=== PATIENT | male | born 1995 | race Hispanic/Latino ===

== ENCOUNTER 2019-09-18 11:12 | Inpatient (IN) | payer OTHER ==
[~2019-09-18] VITALS: Ht 190.5 cm; Wt 68.0 kg
--- NOTE | 2019-09-18 16:06 | NUR ---
09/18/19 1606 Zohaib Maldonado PATIENT ARRIVES TO PACU AWAKE, BUT DROWSY. BREATHING ON HIS OWN.
--- NOTE | 2019-09-18 16:25 | NUR ---
Patient arrives to unit via hospital bed from PACU. Patient is alert. Vitals taken, assessment complete. Abdominal dressings are C/D/I. Bowel tones are hypoactive on RLQ/RUQ and active on LLQ/LUQ. Patient denies pain or nausea. Ice pack applied to abdomen. Patient sips several small sips of water. Clear liquid tray ordered. Patient encouraged to use IS, demonstrates competency. Denies further needs at this time. Call light within reach.
--- NOTE | 2019-09-18 17:44 | NUR ---
Patient sitting up in bed with family in room. Dinner delivered, patient denies pain or nausea. Bowel tones active with tenderness noted on palpation on the RLQ. SCDs in place, D5LR running at 150 mls/hr. No further needs at this time, call light within reach.
--- NOTE | 2019-09-18 17:52 | NUR ---
Patient reports pain of 2/10, pain medication provided.
--- NOTE | 2019-09-18 18:30 | NUR ---
Patient sitting up in bed with family in room. Assessment complete, abdominal dressings C/D/I. Active bowel tone, tenderness noted on palpation. Vital signs taken. No gas passed. Continues working with IS. No further needs at this time, call light within reach.
--- NOTE | 2019-09-18 18:45 | NUR ---
Patient ambulated hallways with family and nursing staff. Denies pain or nausea. Returned to room, ambulated to toilet. Voiding QS. Denies further needs at this time, call light within reach.
--- NOTE | 2019-09-18 19:33 | NUR ---
hob elevated, visiting with friend via phone, no c/o pain. ivf infusing, family at bedside
--- NOTE | 2019-09-18 20:14 | NUR ---
c/o 05/31 abd pain. medicated with toradol
--- NOTE | 2019-09-18 20:36 | NUR ---
CHARGE NURSE ROUNDING. pt RESTING IN BED. NO REQUESTS AT THIS TIME. IV PUMPS PLUGGED IN. WHITEBOARD UP TO DATE. CALL LIGHT WITHIN REACH.
--- NOTE | 2019-09-18 23:15 | NUR ---
RESTING, EYES CLOSED, SMALL AMOUNT OF SS DRAINAGE ON LOWER DRESSING. NO FURTHER C/O ABD PAIN, IVF INFUSING, NO FURTHER C/O ADVERSE REACTION TO ABX
--- NOTE | 2019-09-19 00:07 | NUR ---
PER REQUEST OF RN I CHECKED PT'S TEMP. 98.0 AXILLARY
--- NOTE | 2019-09-19 00:16 | NUR ---
pt REPORTING "FEVER AND PAIN" CUSTOMER ENGAGEMENT REPRESENTATIVE IN TO TAKE TEMP WNL, pt DID REPORT CHILLS. GAVE PRN MED. EDUCATED ON MED. PRIMARY RN INFORMED. CALL LIGHT WITHIN REACH.
--- NOTE | 2019-09-19 01:41 | NUR ---
VITALS AND I&OS DONE AND CHARTED. FRESH ICE WATER AND AN ICE PACK GIVEN. BEDSIDE TABLE AND CALL LIGHT IN REACH.
--- NOTE | 2019-09-19 01:54 | NUR ---
pt ambulating hallways, states burping and maybe passing very small a couple rectal gas. IVf infusing, no adverse reaction to abx. No n/v, no c/o pain, pain med given earlier effective. Up to br, voiding large amounts of yellow urine.Back to bed
--- NOTE | 2019-09-19 01:55 | NUR ---
HELPED PT TO GET HIS SCD'S BACK ON AFTER HIS WALK. BEDSIDE TABLE AND CALL LIGHT IN REACH.
--- NOTE | 2019-09-19 03:48 | NUR ---
resting,resp even unlabored. ivf infusing, scds in place, family inroom
--- NOTE | 2019-09-19 05:38 | NUR ---
PT 3 ABD LAP INCISION INTACT. LOW AABD AREA SLIGHTLY DISTENDED, GLEN BOWEL TONES, BURPING, STATED PASSING GAS RECTALLY X1. HAS BEEN MEDICATED WITH NORCO AND TORADOL WITH GOOD PAIN RELIEF.ICE TO ABD. TOLERATED. NO N/V. TOLERATING CLEAR LIQUIDS WELL. IVF INFUSING, NO C/O ADVERSE REACTION TO IV ABX. VOIDING LARGE AMOUNTS OF YELLOW URINE. WALKED HALLWAYS SEVERAL TIMES. TOLERATED WELL. WRITTEN INFORMATION R/T APPENDECTOMY GIVEN. NO QUESTIONS ASKED, FAMILY AT BEDSIDE
--- NOTE | 2019-09-19 06:50 | NUR ---
awakes easily, denies c/o pain, on clears diet. abd dressinf intact lower end with old drainage. scds inplace, stated passing gas x1 earlier
--- NOTE | 2019-09-19 07:00 | NUR ---
Report received, orders acknowledged. Patient sitting up in bed, awake and alert. Family in room. Patient denies pain or nausea. POC discussed. No further needs at this time. Call light within reach.
--- NOTE | 2019-09-19 07:15 | NUR ---
Patient ambulating hallways with family
--- NOTE | 2019-09-19 07:53 | OR ---
[facility] [address], [place] [address] Signed DATE OF OPERATION: 09/18/2019 SURGEON: Ben Taylor MD PREOPERATIVE DIAGNOSIS: Perforated appendicitis with small abscess. POSTOPERATIVE DIAGNOSIS: Perforated appendicitis with small abscess. PROCEDURE PERFORMED: Laparoscopic appendectomy. ESTIMATED BLOOD LOSS: None. FINDINGS: Kevin is very tall at 6 feet 3 inches. His cecum is actually all the way to the bottom of his pelvis. The tip of his appendix was midway up the right gutter and perforated with a small abscess covered by some omentum. 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 In the last two days, he has been having increasing right lower quadrant abdominal pain with nausea. He came to the emergency room for evaluation. He was tachycardic in the ER and had tenderness in the right lower quadrant if not localized peritonitis. White count was 12,[address] scan confirmed his thickened inflamed appendix with some gas bubbles and a small abscess associated with the appendix. I was asked to see him as a general surgeon on-call in the emergency room. In the meantime, he received some pain medication along with cefepime and Flagyl. I met with Kevin and his and we had a long discussion regarding the location and function of the appendix with respect to the above findings. We discussed laparoscopic versus open appendectomy. He understands the expected intra and postoperative course. We did review the risks including, but not limited to bleeding, infection, scarring, change in contour of the skin, damage to bowel, appendiceal stump leak, postoperative intraabdominal abscess, incisional hernias and other unforeseen comorbidities. He and his had expressed understanding and wished to proceed. PROCEDURE NOTE: Kevin was taken into our operating room and placed in the supine position under Electronically Signed By: BEN TAYLOR MD 09/19/19 0753 PATIENT NAME: KEVIN TIDWELL OPERATIVE REPORT DATE OF : [birth year] REPORT #: [id number] PHYSICIAN: BEN TAYLOR MD PCP: NO PRIMARY CARE PHYSICIAN REPORT IS CONFIDENTIAL AND NOT TO BE RELEASED WITHOUT AUTHORIZATION [facility] [address] [place], [place] [address] Signed general endotracheal tube anesthesia. He was given his preoperative antibiotics along with subcutaneous heparin. SCDs were utilized. A Arias catheter was inserted with return of clear yellow urine without difficulty. He was then prepped and draped in the usual sterile fashion. All trocars were placed in usual positions under direct visualization of the camera. Once again, we found that the cecum was all the way in the bottom of the pelvis and the tip of the appendix was midway up the right gutter. Consequently, we elevated the appendix as it joined the cecum. We created a window with our cautery and divided the appendix from the cecum with the help of a linear stapler. We then worked the omentum bluntly off the appendix and we evacuated the small abscess and irrigated it out until clear. We were able to elevate the appendix up and we divided the mesoappendix with two loads on the linear stapler. All hemostasis was excellent on both staple lines. After this, the appendix was placed into an EndoCatch bag and taken out through the right subcostal trocar site. We used our laparoscopic suturing device to pass 0 Vicryl suture on either side of the fascia of this right subcostal trocar site. This was tied down to close this fascia primarily. We then closed the fascia of the supraumbilical trocar site with interrupted jilhyz-aw-qugla and simple 0 Vicryl sutures. The wound was irrigated and suctioned out until clear. Local anesthetic was copiously injected into all three trocar sites. The skin and dermis of each trocar site were closed with interrupted 3-0 subcuticular Monocryl sutures. Dry gauze and tape were then applied to all incisions. Kevin was awakened from his anesthesia, extubated in the OR, and taken to recovery room in stable condition. Ben Taylor MD ALB/MODL /[id number] cc: Ben Taylor MD Patient's Chart Copies: BEN TAYLOR MD ~ Electronically Signed By: BEN TAYLOR MD 09/19/19 0753 PATIENT NAME: KEVIN TIDWELL OPERATIVE REPORT DATE OF : [birth year] REPORT #: [id number] PHYSICIAN: BEN TAYLOR MD PCP: NO PRIMARY CARE PHYSICIAN REPORT IS CONFIDENTIAL AND NOT TO BE RELEASED WITHOUT AUTHORIZATION
--- NOTE | 2019-09-19 07:53 | CONS ---
[facility] [address] [place], [place] [address] Signed DATE OF CONSULTATION: 09/18/2019 CHIEF COMPLAINT: Right lower quadrant abdominal pain. 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 He is now and living in [place], [place] with his . In the last couple of days, he has been having increasing right lower quadrant abdominal pain with nausea. He finally came to emergency room for evaluation. Here in emergency room, he is little tachycardic. He is also very anxious. He does not appear systemically ill or toxic, but he is certainly tender in the right lower quadrant. White count was 12,000, and a CT scan showed his thickened appendix with few air bubbles around it. Consequently, I was asked to see him as a general surgeon on-call. The meantime, he is receiving his cefepime and Flagyl along with some pain medication. PAST MEDICAL HISTORY: None. PAST SURGICAL HISTORY: None. SOCIAL HISTORY: He does not smoke. He has a drink once in a while. He is , but has no children. They live in [place], [place]. They prefer the [facility] up in [place], [place]. They have no children. 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 They have no primary care provider. FAMILY HISTORY: Apparently, his dad had some type of stomach surgery sounds like it was a stapling procedure. REVIEW OF SYSTEMS: He had 10 systems reviewed. He seems to be quite healthy. ALLERGIES: None. MEDICATIONS: None. PHYSICAL EXAMINATION: VITAL SIGNS: His blood pressure is 130/79, his heart rate is 117, his respiratory rate Electronically Signed By: ROSENDO TAYLOR MD 09/19/19 0753 PATIENT NAME: KEVIN TIDWELL CONSULTATION DATE OF : [birth year] REPORT #: [id number] PHYSICIAN: ROSENDO TAYLOR MD PCP: NO PRIMARY CARE PHYSICIAN REPORT IS CONFIDENTIAL AND NOT TO BE RELEASED WITHOUT AUTHORIZATION [facility] [address] [place], [place] [address] Signed is 16, temperature is 98.9. He is 100% on room air. He is 6 feet 3 inches, 68 kg exam. GENERAL: Kevin is a 24-year-old gentleman lying supine in his emergency room bed. His is in the room along with our nurse. He does not appear systemically ill or toxic, but he is obviously very anxious. LUNGS: Clear to auscultation bilaterally. HEART: Regular rate and rhythm. ABDOMEN: Soft, flat, but he is tender in the right lower quadrant. LABORATORY DATA: His white blood count 12. His hemoglobin 14 , neutrophils 71. Electrolytes are unremarkable. His urinalysis was negative. Liver function tests were negative, albumin is 4.5, his lipase is 15. RADIOGRAPHIC STUDIES: CT scan of the abdomen and pelvis was performed and reviewed. I can see that he certainly has a thickened inflamed appendix with some air bubbles around it. ASSESSMENT/PLAN: Kevin is a 24-year-old gentleman who presents with appendicitis with perforation and few air bubbles around it. I have reviewed all these findings with Kevin and his . We have reviewed the location and function of the appendix. We have reviewed laparoscopic versus open appendectomy. We have reviewed the expected intraop and postop course. We went through the risks including, but not limited to bleeding, infection, scarring, change in contour of the skin, damage to bowel, appendiceal stump leak, postoperative intraabdominal abscess, incisional hernias, and other unforeseen comorbidities. He has expressed understanding and would like to proceed with surgery. Rosendo Taylor MD ALB/MODL /[id number] Copies: ~ Electronically Signed By: ROSENDO TAYLOR MD 09/19/19 0753 PATIENT NAME: KEVIN TIDWELL CONSULTATION DATE OF : [birth year] REPORT #: [id number] PHYSICIAN: ROSENDO TAYLOR MD PCP: NO PRIMARY CARE PHYSICIAN REPORT IS CONFIDENTIAL AND NOT TO BE RELEASED WITHOUT AUTHORIZATION
--- NOTE | 2019-09-19 08:04 | NUR ---
MED REC COMPLETED. PATIENT STATES HE TAKES OTC IBUPROFEN NEEDED BUT DOES NOT TAKE AND ROUTINE MEDICATIONS.
--- NOTE | 2019-09-19 08:10 | NUR ---
Patient reports pain of 3/10, prn pain medication given
--- NOTE | 2019-09-19 08:29 | NUR ---
Dr. Taylor in room to discuss POC with patient. Ambulated to toilet independently. Returned to chair. Fluids running at 150 mls/hr. Patient passing gas, denies pain or nausea. AM medications given, assessment complete. No further needs at this time, call light within reach.
--- NOTE | 2019-09-19 09:00 | NUR ---
Spoke with Milton. He plans on discharging home possible tomorrow. Lives independently with . Denies DME use. Does not currently have a pcp, but is planning on contacting from [facility] as they live [place].
--- NOTE | 2019-09-19 09:21 | NUR ---
Patient sitting up in chair. D5LR running at 75 mls/hr, IV abx running at 200 mls/hr. Denies needs at this time, call light within reach.
--- NOTE | 2019-09-19 10:05 | NUR ---
PT SALINE LOCKED TO AMBULATE IN HALLS. ABX COMPLETED.
--- NOTE | 2019-09-19 11:30 | NUR ---
Patient sitting up in bed with at bedside. Reports pain of 3/10, pain medication given. IV abx running at 25 mls/hr. Water refreshed. Denies further needs at this time, call light within reach.
--- NOTE | 2019-09-19 12:55 | NUR ---
Patient ambulating hallways with . Fluids running at 75 mls/hr and IV abx running at 25 mls/hr.
--- NOTE | 2019-09-19 14:05 | NUR ---
Patient sitting up in bed with family at bedside. IV abx hung at 200 mls/hr. Patient denies pain. No further needs at this time, call light within reach.
--- NOTE | 2019-09-19 16:15 | NUR ---
Patient ambulating the hallway with , fluids running. Returns to bed independently. Denies any needs at this time, call light within reach.
--- NOTE | 2019-09-19 18:00 | NUR ---
Patient sitting up in bed, awake and alert. Fluids running at 75 mls/hr. at bedside. Patient denies pain or nausea. No further needs at this time, call light within reach.
--- NOTE | 2019-09-19 19:10 | NUR ---
SHIFT REPORT RECEIVED FROM SHANE KHOURY AT BEDSIDE. PT RESTING IN BED. IV FLUIDS INFUSING AT 75MLS/HR, SITE WNL. LAP SITES X3 JENNIFER, WELL APPROXIMATED. NO NEEDS AT THIS TIME, CALL LIGHT IN REACH. FAMILY IN ROOM.
--- NOTE | 2019-09-19 20:30 | NUR ---
ASSESSMENT COMPLETE, SCHEDULED MEDS GIVEN (SEE EMAR). PT RATES PAIN 1/10, DENIES NEED FOR PAIN MEDICATION AT THIS TIME. VSS., PT ON RA. IV ABX INFUSING PER MD ORDERS, SITE X2 WNL. LAP SITES X3 PROPOSAL ENGINEER, WELL APPROXIMATED, DRY. NO SIGNS OF INFECTION, WILL CONTINUE TO MONITOR. IN ROOM, NO ADDITIONAL NEEDS. CALL LIGHT IN REACH.
--- NOTE | 2019-09-19 21:30 | NUR ---
PT AMBULATING IN HALLWAY WITH .
--- NOTE | 2019-09-19 23:59 | NUR ---
NEW BAG OF IV FLUIDS INFUSING AT 75MLS, SITE WNL. IV ABX ALSO INFUSING PER MD ORDERS, SITE WNL. PRN PAIN MEDICATION GIVEN FOR 3/10 PAIN IN ABDOMEN. JELLO PROVIDED, NO FURTHER NEEDS. CALL LIGHT IN REACH.
--- NOTE | 2019-09-20 00:42 | NUR ---
INFORMED BY RN KUSH THAT PT REQUESTED THIS RN. THIS RN IN ROOM TO ASSESS, PT REPORTED MINIMAL ABDOMINAL PAIN, BUT SINCE RESOLVED. NO NEEDS AT THIS TIME. CALL LIGHT IN REACH, IN ROOM.
--- NOTE | 2019-09-20 02:30 | NUR ---
ASSESSMENT COMPLETE, NO NEW CHANGES OR CONCERNS. PT AWAKE AND RESTING IN BED, DENIES PAIN. PT REPORTS SHIVERING AND FEELING COLD, ORAL TEMP RESULT OF 98.0. NO CHANGES IN LAP SITES FROM PREVIOUS ASSESSMENT. IV SITE X2 WNL, CALL LIGHT IN REACH. SCD'S IN PLACE. IN ROOM.
--- NOTE | 2019-09-20 05:34 | NUR ---
I&O'S AND VS COLLECTED AND STABLE. NO NEEDS VERABLIZED, CALL LIGHT IN REACH.
--- NOTE | 2019-09-20 05:44 | NUR ---
PT HAD GREAT NIGHT, AMBULATED IN HALLWAY. VSS, PT ON RA. A/OX4. PAIN CONTROLLED WITH PRN PAIN MEDICATIONS. REGULAR DIET, TOLERATING WELL, NO NAUSEA. LAP SITES X3 NOTED, OPEN TO AIR, DRY. VOIDING QS, NO BM THIS SHIFT. USES CALL LIGHT APPROPERIATELY.
--- NOTE | 2019-09-20 07:20 | NUR ---
BEDSIDE REPORT RECEIVED PT RESTING EYES CLOSED
--- NOTE | 2019-09-20 08:17 | NUR ---
PT RESTING IN BED SPOUSE AT BEDSIDE. STATES HIS SCOPE SITES ARE STARTING TO HURT, PAIN MEDS ADMINISTERED. EDUCATON R/T NARC SIDE EFFECTS AND BOWEL NEEDS DISCUSSED AT LENGTH PT VERBALIZES UNDERSTANDING. PT DEMONSTRATES I.S APPROPRIATELY AGREES TO USE THIS THROUGHOUT THE DAY. PT ENCOURAGED TO AMBULATE THE HALLS SEVERAL TIMES THIS SHIFT. BREAKFAST IS ORDERED PT DENIES NAUSEA OR OTHER NEED.
[2019-09-20] MEDS ORDERED: LEVAQUIN500 MG PO (10:12)
[2019-09-20] MEDS ORDERED: FLAGYL500 MG PO (10:12)
--- NOTE | 2019-09-20 10:13 | NUR ---
dr petty in to see pt dc orders written questions answered
[2019-09-20] MEDS ORDERED: NORCO 5-325 TA1 EACH PO (10:14)
--- NOTE | 2019-09-21 08:12 | DS ---
[facility] [address] [place], [place] [address] Signed ADMISSION DATE: 09/18/2019 DISCHARGE DATE: 09/20/2019 FINAL DIAGNOSIS: Perforated appendicitis with small abscess. PROCEDURE: Laparoscopic appendectomy. 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 He is now here in [facility] living in [place], [place], with his . He is not currently employed. He had two days of right lower quadrant abdominal pain. He finally came to emergency room for evaluation. His white count [place] [address] scan showing the perforated appendix with some air bubbles and a small abscess. I was asked to see him as above. HOSPITAL COURSE: Elpidio was given his antibiotics and taken to the operating room that same day. He underwent a laparoscopic appendectomy for the perforated appendicitis and small abscess. No drains were left in place. He has done well both intraoperatively and postoperatively. He is now tolerating regular diet and ambulating without difficulties. He is having lots of flatus. On exam, his abdomen is soft flat. He has a little bit of incisional tenderness as expected. We have left him on the cefepime and Flagyl throughout the hospital stay. At this point, he has reached discharge status. DISCHARGE PLANS AND MEDICATIONS: Elpidio will be discharged to home with Levaquin 500 mg p.o. daily for three days. We will also give him Flagyl 500 mg p.o. t.i.d. for three days. We will give him five full days of antibiotics. He has done well with [place] 5/325 one to two tablets p.o. q.6 hours p.r.n. for severe postoperative pain. We will give him 25 tablets with no refills. He can use Tylenol, ibuprofen, or Naprosyn as needed for iajf-gj-[id number] postoperative pain. That can be purchased [id number]. He can continue his regular diet at home. He can continue his activities of daily living including walking up and down stairs and showering and bathing as usual. He should not do any heavy pushing, pulling, or lifting over about 20 pounds. We will have him follow up in the office in about 7-10 days. He and his have expressed understanding and agreed to the above plan. Electronically Signed By: BEN TAYLOR MD 09/21/19811 PATIENT NAME: ELPIDIO TIDWELL DISCHARGE SUMMARY DATE OF : [birth year] REPORT #: [id number] PHYSICIAN: BEN TAYLOR MD PCP: NO PRIMARY CARE PHYSICIAN REPORT IS CONFIDENTIAL AND NOT TO BE RELEASED WITHOUT AUTHORIZATION [address] [address] Signed Ben Taylor MD [facility] /[id number] cc: Ben Taylor MD Copies: BEN TAYLOR MD ~ Electronically Signed By: BEN TAYLOR MD 09/21/19811 PATIENT NAME: GIDEONCHUCKYELPIDIO MCDANIEL DISCHARGE SUMMARY DATE OF : [birth year] REPORT #: [id number] PHYSICIAN: BEN TAYLOR MD PCP: NO PRIMARY CARE PHYSICIAN REPORT IS CONFIDENTIAL AND NOT TO BE RELEASED WITHOUT AUTHORIZATION
--- NOTE | 2019-09-22 14:40 | PATH ---
[facility] [address] [place] [place], [place] [address] Signed SPECIMEN(S): A APPENDIX SPECIMEN SOURCE: A. APPENDIX CLINICAL HISTORY: Ruptured appendix with abscess. FINAL PATHOLOGIC DIAGNOSIS: Appendix, appendectomy: - Acute appendicitis with perforation and acute serositis. - Periappendiceal abscess formation. LJA:cml:C2NR MICROSCOPIC EXAMINATION: Histologic sections of all submitted blocks are examined by light microscopy. These findings, together with the gross examination, support the pathologic diagnosis. GROSS DESCRIPTION: The specimen, labeled "HL," and designated on the requisition "appendix," is received in formalin and consists of Specimen: Appendix with mesoappendix. Dimensions: 8.6 x 0.7 cm. Serosa: Violaceous with villareal-green softening at the distal tip. Perforation: One possible full-thickness defect 1 cm from the distal tip, measuring 0.2 cm in greatest dimension. Inking: Staple line is inked. Mucosa: Red and roughened. Fecalith: Not grossly identified. Additional: None. Materials Assistant sections are submitted in cassette (A1). FB (under the direct supervision of a pathologist) The Gross Description was prepared using a voice recognition system. The report was reviewed for accuracy; however, sound-alike word errors, addition and/or deletions may occur. If there is any question about this report, please contact Client Services. PERFORMING LABORATORY: The technical component was performed by [facility], [address] [place] [id number] (Barrel Rib Matting Machine Operator: April Stiles MD; IGNACIO# PATIENT NAME: KEVIN TIDWELL PATHOLOGY DATE OF : [birth year] REPORT #: [id number] PHYSICIAN: SERENA PATHOLOGY PCP: NO PRIMARY CARE PHYSICIAN REPORT IS CONFIDENTIAL AND NOT TO BE RELEASED WITHOUT AUTHORIZATION [facility] [address] [place] [place], [place] [address] Signed [id number]).Professional interpretation was performed by [facility], [address] [address] (Barrel Rib Matting Machine Operator: Amilcar Escobar MD; CLIA# [id number]). Diagnostician: Amilcar Escobar MD Pathologist Electronically Signed 09/22/2019 Copies: ~ PATIENT NAME: KEVIN TIDWELL PATHOLOGY DATE OF : [birth year] REPORT #: [id number] PHYSICIAN: SERENA PATHOLOGY PCP: NO PRIMARY CARE PHYSICIAN REPORT IS CONFIDENTIAL AND NOT TO BE RELEASED WITHOUT AUTHORIZATION
== END 2019-09-20 11:10 | disposition home or self-care (01) | DRG 340 ==
LOC: ED 11:12 → MS 13:56
PROVIDERS: ADMIT Colon & Rectal Surgery
PROC: 0DTJ4ZZ Resection of Appendix, Percutaneous Endoscopic Approach (ICD-10-PCS; principal; 2019-09-18 14:01)
DX: K35.33 Acute appendicitis with perforation, localized peritonitis, and gangrene, with abscess (principal)
CPT/HCPCS: 00840; 74177; 80053; 81001; 83690; 85025; 90688; 94760; 96361; 96368; 99285-25; J0330; J0692; J1100; J1170; J1644; J1650; J1885; J2250; J2405; J2704; J2765; J3010; J7030; J7060; J7121; Q9967